=== PATIENT | female | born 1980 | race Caucasian/White ===

== ENCOUNTER 2020-09-08 12:09 | Outpatient (CLI) | payer BC ==
--- NOTE | 2020-09-08 12:54 | RAD ---
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 Lungs appear clear. No radiographic eviden ce of tuberculosis. IMPRESSION: No acute findings.
== END 2020-09-08 12:10 | disposition home or self-care (01) ==
LOC: BICRAD 12:09
PROVIDERS: ATTEND Student in an Organized Health Care Education/Training Program
DX: Z22.7 Latent tuberculosis (principal)
CPT/HCPCS: 71046; 87070; 87556